=== PATIENT | female | born 1960 | race Caucasian/White ===

== ENCOUNTER → 2016-12-07 | Outpatient (CLI) | payer OTHER ==
--- NOTE | 2016-12-07 17:48 | MA ---
Screening Bilateral Digital Mammogram History: Screening. Breast parenchymal density: B. Technique: Four digital views of each breast are obtained including CC and oblique lateral Magaly (im plant displaced) and non-Magaly (implant not displaced) views. CAD is utilized using the iCAD product . Comparison: March 2013 and August 2011. Findings: Bilateral breast implants are in place. No suspicious areas are identified. Impression: Negative mammogram. Routine screening is recommended in one year. BI-RADS : 1, Negative. [facility] will send a result letter to the patient. Negative mammography should not preclude additional workup of a clinically suspicious finding. The patient's information is entered into a reminder system with a target due date for her next mammo gram.
== END ==
LOC: FIMAGING 13:45
DX: Z12.31 Encounter for screening mammogram for malignant neoplasm of breast (principal)
CPT/HCPCS: G0202

== ENCOUNTER 2018-10-17 23:40 | Emergency (ER) | payer OTHER ==
[2018-10-18] MEDS ORDERED: DIAZEPAM 5 MG TAB PO ONE (00:44)
--- NOTE | 2018-10-18 01:19 | EDPHY ---
H & P Stated Complaint: dogs pulled her down 1 step, severe low back pain Time Seen by Provider: 10/17/18 23:42 HPI/ROS: HPI The patient presents with lower back pain which began after a fall today. She was caring her dogs down the stairs and tripped on the last stair, hitting her back against it. She has been able to walk though has experienced acute onset of low back pain which is achy in nature and in the middle of her spine and does not radiate. This is moderate in severity. 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 She denies any numbness or tingling in her legs or changes in her bowel or bladder function.. REVIEW OF SYSTEMS 10 systems were reviewed and negative with the exception of the elements mentioned in the history of present illness. PMHx: Healthy, no medications Soc Hx: Here with her daughter, recently travel to [place] PHYSICAL General Appearance: Alert, no distress Eyes: Pupils equal and round no pallor or injection ENT, Mouth: Mucous membranes moist Respiratory: There are no retractions, lungs are clear to auscultation Cardiovascular: Regular rate and rhythm Gastrointestinal: Abdomen is soft and non-tender, no masses, bowel sounds normal Neurological: A&O, 5/5 strength in her lower extremities Skin: Warm and dry, there is an abrasion to her lumbar spinal region at the midline measuring approximately 5 cm Musculoskeletal: Lumbar spine is tender at approximately L3, L4, L5 at the midline and also in the paraspinal regions, there is limited extension and flexion of the spine secondary to pain Extremities: symmetrical, full range of motion Psychiatric: Patient is oriented X 3, there is no agitation Source: Patient Exam Limitations: No limitations - Personal History Current Tetanus/Diphtheria Vaccine: Yes Current Tetanus Diphtheria and Acellular Pertussis (TDAP): Yes - Medical/Surgical History Hx Asthma: No Hx Chronic Respiratory Disease: No Hx Diabetes: No Hx Cardiac Disease: No Hx Renal Disease: No Hx Cirrhosis: No Hx Alcoholism: No Hx HIV/AIDS: No Hx Splenectomy or Spleen Trauma: No Other PMH: Breast implant surgery - Social History Smoking Status: Never smoked Constitutional: Initial Vital Signs Temperature (C) 36.6 C 10/17/18 23:43 Heart Rate 71 10/17/18 23:43 Respiratory Rate 20 10/17/18 23:43 Blood Pressure 111/62 10/17/18 23:43 O2 Sat (%) 100 10/17/18 23:43 O2 Delivery Mode Room Air Allergies/Adverse Reactions: No Known Allergies Allergy (Unverified 10/17/18 23:43) Home Medications: Medication Instructions Recorded buPROPion 10/17/18 Diazepam [Valium 5 MG (*)] 5 mg PO TID PRN #15 tab 10/18/18 Medical Decision Making - Diagnostics Imaging Results: Lumbar plain films show loss of vertebral height at L4, L5, no obvious acute fracture, interpreted by me, radiology interpretation is pending. Imaging: I viewed and interpreted images myself Differential Diagnosis: 57-year-old female with a fall down a single stair just prior to arrival with low back pain. Here, she has no neurologic deficits. She has tenderness at her midline and thus plain films were obtained. Patient is concerned about cost of her visits so wants to avoid CT scan. His plain films did not demonstrate any acute fracture. I explained to her that these are not as sensitive as CT scan. She felt better after receiving a dose of Valium and requested discharge. I will give her follow-up with neuro surgery if her symptoms continue. I have encouraged her to take ibuprofen and Tylenol with Valium as needed. I have considered vertebral compression fracture, lumbar spinal strain, muscle spasm in her differential diagnosis. - Data Points Medications Given: Discontinued Medications Diazepam (Valium) 5 mg PO EDNOW ONE Stop: 10/18/18 00:45 Last Admin: 10/18/18 00:46 Dose: 5 mg Departure - Departure Disposition: Home, Routine, Self-Care Clinical Impression: Fall down stairs Qualifiers: Encounter type: initial encounter Qualified Code(s): W10.8XXA - Fall (on) (from ) other stairs and steps, initial encounter Lower back injury Qualifiers: Encounter type: initial encounter Qualified Code(s): S39.92XA - Unspecified injury of lower back, initial encounter Abrasion of lower back Qualifiers: Encounter type: initial encounter Qualified Code(s): S30.810A - Abrasion of lower back and pelvis, initial encounter Condition: Good Instructions: Acute Low Back Pain (ED) Additional Instructions: I recommend you use ice for 20 min at a time, several times a day. You should also take ibuprofen 400 mg every 6 hr. You can take this with Tylenol 1000 mg every 6 hr. I have given you a prescription for Valium as needed for muscle spasm. If your pain continues, you may need further imaging such as a CT scan or MRI. I have given you information for the neurosurgeon. You should call to make an appointment with them or your primary care doctor if the pain persists for more than 2 days or is getting worse. Referrals: Kota Novak MD [Medical Doctor] - As per Instructions Prescriptions: Diazepam [Valium 5 MG (*)] 5 mg PO TID PRN #15 tab PRN Reason: Spasms
[2018-10-18 01:24] VITALS: BP 112/78
== END 2018-10-18 01:46 | disposition home or self-care (01) ==
DX: S30.810A Abrasion of lower back and pelvis, initial encounter (principal); W10.8XXA Fall (on) (from) other stairs and steps, initial encounter; Y93.K9 Activity, other involving animal care